=== PATIENT | female | born 1975 | race Caucasian/White ===

== ENCOUNTER 2016-09-10 22:30 | Emergency (ER) | payer BC ==
[~2016-09-10] VITALS: Ht 165.1 cm; Wt 49.0 kg
[2016-09-11 07:30] LABS: HEMOGLOBIN 7.9 gm/dl (12.3-15.3); RED BLOOD COUNT 3.62 M/UL (4.00-5.10); WHITE BLOOD COUNT 4.8 K/UL (4.5-11.0)
[2016-09-11 07:45] LABS: BUN/CREATININE RATIO 20 (0-10)
[2016-09-11 13:07] LABS: HEMOGLOBIN 7.9 gm/dl (12.3-15.3)
[2016-11-20] MEDS ORDERED: MULTIVITAMINS1 EAC1 PO (07:28)
[2016-11-20] MEDS ORDERED: NORCO 5-325 TA1 EACH PO (11:09)
[2016-11-20] MEDS ORDERED: IBUPROFEN600 MG PO (11:10)
[2016-11-20] MEDS ORDERED: COLACE 100MG C100 MG PO (11:11)
== END 2016-09-11 14:00 | disposition home or self-care (01) ==
LOC: ER1 22:30 → ZEROF 09-11 09:45 → ER1 09-11 09:45
PROVIDERS: Obstetrics & Gynecology; Physician Assistant
DX: N39.0 Urinary tract infection, site not specified (principal); R31.9 Hematuria, unspecified; D64.9 Anemia, unspecified; N85.8 Other specified noninflammatory disorders of uterus; F17.210 Nicotine dependence, cigarettes, uncomplicated; Z88.0 Allergy status to penicillin
CPT/HCPCS: 36415; 76830; 80053; 81001; 82272; 83690; 84703; 85014; 85018; 85025; 86850; 86900; 86901; 87086; 96361; 96365; 96375; 99284; J1956; J2405; J7030

== ENCOUNTER 2016-10-04 19:48 | Emergency (ER) | payer BC ==
[2016-10-05 03:22] LABS: HEMOGLOBIN 8.1 gm/dl (12.3-15.3); RED BLOOD COUNT 3.83 M/UL (4.00-5.10); WHITE BLOOD COUNT 4.6 K/UL (4.5-11.0)
[2016-10-05 03:32] LABS: BUN/CREATININE RATIO 13 (0-10)
[2016-11-20] MEDS ORDERED: MULTIVITAMINS1 EAC1 PO (07:28)
[2016-11-20] MEDS ORDERED: NORCO 5-325 TA1 EACH PO (11:09)
[2016-11-20] MEDS ORDERED: IBUPROFEN600 MG PO (11:10)
[2016-11-20] MEDS ORDERED: COLACE 100MG C100 MG PO (11:11)
== END 2016-10-05 09:22 | disposition left against medical advice (07) ==
LOC: ER1 19:48
PROVIDERS: Emergency Medicine
DX: I95.1 Orthostatic hypotension (principal); D50.9 Iron deficiency anemia, unspecified; N93.8 Other specified abnormal uterine and vaginal bleeding; R06.4 Hyperventilation; F17.210 Nicotine dependence, cigarettes, uncomplicated; Z88.0 Allergy status to penicillin; Z79.899 Other long term (current) drug therapy
CPT/HCPCS: 36415; 71020; 80053; 81001; 83690; 83880; 84484; 84703; 85025; 85379; 87086; 93005; 96360; 96361; 99285; J7030; J7050; Q9963

== ENCOUNTER → 2016-11-14 | Outpatient (CLI) | payer BC ==
[~2016-11-14] MED LIST: COLACE 100MG C100 MG PO; IBUPROFEN600 MG PO; MULTIVITAMINS1 EAC1 PO; NORCO 5-325 TA1 EACH PO
[2016-11-14 09:21] LABS: RED BLOOD COUNT 4.67 M/UL (4.00-5.10); WHITE BLOOD COUNT 5.7 K/UL (4.5-11.0)
== END ==
LOC: OPSV2 11-13 10:00
PROVIDERS: Obstetrics & Gynecology
DX: Z01.812 Encounter for preprocedural laboratory examination (principal); N92.0 Excessive and frequent menstruation with regular cycle; N83.201 Unspecified ovarian cyst, right side; D64.9 Anemia, unspecified; R10.2 Pelvic and perineal pain; Z88.0 Allergy status to penicillin
CPT/HCPCS: 36415; 81001; 85025

== ENCOUNTER → 2016-11-20 | Day surgery (SDC) | payer BC | END | disposition home or self-care (01) | LOC: OR 07:01 | PROVIDERS: Obstetrics & Gynecology | PROC: 0UT04ZZ Resection of Right Ovary, Percutaneous Endoscopic Approach (ICD-10-PCS; principal; 2016-11-20 08:00) | PROC: 0UT54ZZ Resection of Right Fallopian Tube, Percutaneous Endoscopic Approach (ICD-10-PCS; 2016-11-20 08:00) | PROC: 0U5B8ZZ Destruction of Endometrium, Via Natural or Artificial Opening Endoscopic (ICD-10-PCS; 2016-11-20 08:00) | DX: N83.201 Unspecified ovarian cyst, right side (principal); F17.210 Nicotine dependence, cigarettes, uncomplicated; Z88.0 Allergy status to penicillin; Z90.49 Acquired absence of other specified parts of digestive tract; Z98.51 Tubal ligation status; Z86.69 Personal history of other diseases of the nervous system and sense organs | CPT/HCPCS: J1100; J1580; J1885; J2250; J2405; J2710; J2795; J3010; J7030; J7040; J7120 ==

== ENCOUNTER 2022-02-28 02:43 | Emergency (ER) | payer BC ==
[~2022-02-28 02:43] MED LIST changes: +IBUPROFEN400 MG PO; +ZOFRAN4 MG PO
[2022-02-28 06:27] LABS: HEMOGLOBIN 13.8 gm/dl (12.3-15.3); RED BLOOD COUNT 4.69 M/UL (4.00-5.10); WHITE BLOOD COUNT 3.8 K/UL (4.5-11.0)
[2022-02-28 06:52] LABS: BUN/CREATININE RATIO 21 (0-10)
== END 2022-02-28 07:44 | disposition home or self-care (01) ==
LOC: ER1 02:43
PROVIDERS: Student in an Organized Health Care Education/Training Program
DX: R51.9 Headache, unspecified (principal); Z88.0 Allergy status to penicillin
CPT/HCPCS: 70450; 80053; 85025; 85652; 96374; 96375; 99284; J1885; J2765